=== PATIENT | female | born 1955 | race Caucasian/White ===

== ENCOUNTER 2017-03-02 14:04 | Emergency (ER) | payer BC ==
[2017-03-02 15:16] LABS: HEMOGLOBIN 14.3 gm/dl (12.3-15.3); RED BLOOD COUNT 4.83 M/UL (4.00-5.10); WHITE BLOOD COUNT 12.3 K/UL (4.5-11.0)
[2017-03-02 15:51] LABS: BUN/CREATININE RATIO 22 (0-10)
== END 2017-03-02 16:25 | disposition home or self-care (01) ==
LOC: ER1 14:04
PROVIDERS: Emergency Medicine
DX: S16.1XXA Strain of muscle, fascia and tendon at neck level, initial encounter (principal); E11.40 Type 2 diabetes mellitus with diabetic neuropathy, unspecified; Z90.710 Acquired absence of both cervix and uterus; X58.XXXA Exposure to other specified factors, initial encounter
CPT/HCPCS: 36415; 72125; 73030; 80048; 83735; 84484; 85025; 86140; 93005; 99284